=== PATIENT | female | born 1945 | race African-American/Black ===

== ENCOUNTER 2017-06-02 09:10 | Outpatient (CLI) | payer MEDICARE ==
--- NOTE | 2017-06-02 13:11 | MRI ---
LUMBAR SPINE MRI NONCONTRAST: Date: 06/02/17 CLINICAL HISTORY: Intervertebral disc disorder with radiculopathy. Reference made to 04/12/11 exam. FINDINGS: There is stable heterogeneity of the regional marrow. Conus medullaris demonstrates termination at t he L1-2 level. No acute marrow edema. L5-S1: There is mild central canal stenosis with resultant disc osteophyte complex and minimal, Grade I, sp ondylolisthesis. There is mild bilateral neural foraminal stenosis. L4-5: Disc osteophyte complex is present without significant central canal stenosis. There is minimal narr owing of each neural foramina. L3-4: Mild effacement of the ventral thecal sac on the basis of disc osteophyte complex. No high grade for aminal stenosis. L2-3: No significant compromise of the central canal or neural foramina. L1-2: No significant compromise of the central canal or neural foramina. Incidental note of left renal cyst. There is also incidental note of T11-12 level disc osteophyte ef facing ventral thecal sac. IMPRESSION: Multilevel mild degenerative changes of the lumbar spine, without significant interval change from c omparison exam of 04/12/11. POS: [facility]
== END 2017-06-02 09:11 | disposition home or self-care (01) ==
LOC: MRI 09:10
PROVIDERS: ATTEND Nurse Practitioner Family
DX: M51.16 Intervertebral disc disorders with radiculopathy, lumbar region (principal); M47.26 Other spondylosis with radiculopathy, lumbar region
CPT/HCPCS: 72148

== ENCOUNTER 2017-07-27 08:00 | Outpatient (CLI) | payer MEDICARE | END 2017-07-27 08:01 | disposition home or self-care (01) | LOC: BICMAMMO 08:00 | PROVIDERS: ATTEND Family Medicine | DX: Z13.820 Encounter for screening for osteoporosis (principal); M85.88 Other specified disorders of bone density and structure, other site | CPT/HCPCS: 77080 ==

== ENCOUNTER 2017-10-27 07:59 | Outpatient (CLI) | payer MEDICARE | END 2017-10-27 08:00 | disposition home or self-care (01) | LOC: BICMAMMO 07:59 | PROVIDERS: ATTEND Obstetrics & Gynecology | DX: Z12.31 Encounter for screening mammogram for malignant neoplasm of breast (principal) | CPT/HCPCS: 77063; 77067 ==

== ENCOUNTER 2018-10-25 10:45 | Outpatient (CLI) | payer MEDICARE ==
[2018-10-25 11:33] LABS: Estimated GFR-MDRD - POC Greater than 90
--- NOTE | 2018-10-25 12:04 | CT ---
FContrast-enhanced images chest and abdomen. HISTORY: History of weight loss, cough, ulcerative colitis and upper abdominal pain. IV and oral contrast was given. Comparison made to a previous exam from 04/02/2015. The lung parenchyma is unremarkable with no evidence of masses or lesions. No evidence of mediastinal hilar or axillary lymphadenopathy seen. Some mitral annular calcifications seen. There is marked heterogeneity and enlargement of the thyroid lobes compatible with possible multinodu lar goiter. Correlate with thyroid sonography. No evidence of free intraperitoneal air seen. The liver is unremarkable except for small hypodense lesions seen along the posterior right hepatic l obe along the dome. This is smaller than on the previous comparison exam. Surgical clips seen in the gallbladder fossa. The spleen is unremarkable. The pancreas is unremarkable. Adrenal glands and right kidney are unremarkable. The left kidney is unremarkable except for a midpole left renal cortical cysts. This has a diameter o f approximately 15 mm. No dilated loops of small bowel seen. Some diffuse colonic mucosal thickening is present compatible with patient's history of ulcerative co litis. L5-S1 intervertebral disc changes of spondylosis seen. IMPRESSION: colonic thickening compatible with changes of colitis.
== END 2018-10-25 10:46 | disposition home or self-care (01) ==
LOC: BICCT 10:45
PROVIDERS: ATTEND Internal Medicine Gastroenterology
DX: K21.9 Gastro-esophageal reflux disease without esophagitis (principal); K51.90 Ulcerative colitis, unspecified, without complications; R63.4 Abnormal weight loss; K63.89 Other specified diseases of intestine; Z80.8 Family history of malignant neoplasm of other organs or systems
CPT/HCPCS: 71260; 74160; 82565

== ENCOUNTER 2018-10-30 07:58 | Outpatient (CLI) | payer MEDICARE ==
--- NOTE | 2018-11-01 18:23 | MMO ---
Bilateral MAMMO Bilat Screen [facility]JATA. CLINICAL HISTORY: Patient is 72 years old and is seen for screening. The patient has no family history of breast cancer. The patient has no personal history of cancer. VIEWS: The views performed were: bilateral craniocaudal with tomosynthesis and bilateral mediolateral oblique with tomosynthesis. FILMS COMPARED: The present examination has been compared to prior imaging studies performed at [facility] on 10/27/2017, and at [facility] on 01/10/2012, 01/30/2013, 01/30/2014 and 09/16/2016. MAMMOGRAM FINDINGS: There are scattered fibroglandular densities. There is a stable round mass seen in the left breast. There are no suspicious masses, calcifications or areas of architectural distortion. There are no suspicious masses, suspicious calcifications, or new areas of architectural distortion. IMPRESSION: THERE IS NO MAMMOGRAPHIC EVIDENCE OF MALIGNANCY. A ROUTINE FOLLOW-UP MAMMOGRAM IN 1 YEAR IS RECOMMENDED. THE RESULTS OF THIS EXAM WERE SENT TO THE PATIENT. ACR BI-RADS Category 2 - Benign finding MAMMOGRAPHY NOTE: 1. A negative mammogram report should not delay a biopsy if a dominant of clinically suspicious mass is present. 2. Approximately 10% to 15% of breast cancers are not detected by mammography. 3. Adenosis and dense breasts may obscure an underlying neoplasm.
== END 2018-10-30 07:59 | disposition home or self-care (01) ==
LOC: BICMAMMO 07:58
PROVIDERS: ATTEND Family Medicine
DX: Z12.31 Encounter for screening mammogram for malignant neoplasm of breast (principal)
CPT/HCPCS: 77063; 77067

== ENCOUNTER 2018-11-14 07:25 | Outpatient (CLI) | payer MEDICARE ==
--- NOTE | 2018-11-14 09:30 | ULT ---
THYROID ULTRASOUND: INDICATIONS: Multinodular goiter. COMPARISON: Prior ultrasound guided FNA dated 03/12/2016. Thyroid ultrasound dated 12/10/2016. Thyroid ultrasound dated 03/10/2017. Thyroid ultrasound dated 11/23/2017. FINDINGS: Again seen is a large, heterogeneous, multinodular goiter, with the right thyroid lobe measuring 6.3 x 3.4 x 3.7 cm. The left thyroid lobe measures 6.9 x 3 x 2.4 cm. The thyroid isthmus measures 0.83 cm. The enlarged nodules are largely stable. The largest within the right lower lobe of the thyroid glan d measures 3.5 x 3.5 x 2.5 cm. A solid nodule within the mid right thyroid lobe measure 2.4 x 1.2 x 2.1 cm. There is a 1.4 cm nodule noted within the superior pole. Additional smaller nodules are see n scattered throughout the right thyroid lobe. The largest nodule within the left aspect of the isthmus measures 1.6 cm, which is stable. The largest within the left thyroid lobe is seen within the inferior pole, measuring 3 cm. An additi onal larger nodule within the lower pole measures 1.9 cm. IMPRESSION: Stable multinodular goiter. POS: [facility]
== END 2018-11-14 07:26 | disposition home or self-care (01) ==
LOC: BICULT 07:25
PROVIDERS: ATTEND Otolaryngology Plastic Surgery within the Head & Neck
DX: E04.2 Nontoxic multinodular goiter (principal)
CPT/HCPCS: 76536

== ENCOUNTER 2018-11-29 07:16 | Inpatient (IN) | payer MEDICARE ==
[2018-11-29 08:25] LABS: Hemoglobin 13.5 g/dL (12.0-16.0)
[2018-11-29 08:43] LABS: Anion Gap 10 mmol/L (10-20); BUN (Urea Nitrogen) 12 mg/dL (9.8-20.1); Calc. Creatinine Clearance 93 mL/min (70-130); Calcium 10.1 mg/dL (7.8-10.44); Carbon Dioxide 32 mmol/L (23-31); Chloride 104 mmol/L (98-107); Estimated GFR-MDRD Greater than 90; Glucose 123 mg/dL (83-110); Sodium 142 mmol/L (136-145)
[2018-11-29] MEDS ORDERED: Lidocaine 1% w/Epinephrine 1:100K 20 ML VIAL ONE (09:05)
[2018-11-29] MEDS ORDERED: Midazolam HCl 2 mg/2 ml Vial ONE ×2 (09:13→13:51)
[2018-11-29] MEDS ORDERED: Fentanyl 100 MCG/2 ML VIAL ONE ×2 (09:13→13:58)
[2018-11-29] MEDS ORDERED: PROPOFOL 200 MG/20 ML VIAL ONE ×2 (09:51→09:52)
[2018-11-29] MEDS ORDERED: Dexamethasone 20 MG/5 ML VIAL ONE ×2 (09:51→09:52)
[2018-11-29] MEDS ORDERED: Esmolol 100 MG/10 ML VIAL ONE (09:51)
[2018-11-29] MEDS ORDERED: Ondansetron PF 4 MG/2 ML Vial ONE (09:51)
[2018-11-29] MEDS ORDERED: Lidocaine 1% PF 5 ML VIAL ONE (09:51)
[2018-11-29] MEDS ORDERED: Succinylcholine Chloride 20 MG/ML 10 ml SYRINGE FS ONE (09:51)
[2018-11-29] MEDS ORDERED: Rocuronium Bromide 10 MG/ML (10ML VIAL) ONE (09:52)
[2018-11-29] MEDS ORDERED: CEFAZOLIN 1 GM VIAL ONE (09:52)
[2018-11-29] MEDS ORDERED: Glycopyrrolate 0.2 MG/ML 5 ML SYRINGE ONE (09:52)
[2018-11-29] MEDS ORDERED: Labetalol HCl 100 MG/20 ML VIAL ONE (09:55)
[2018-11-29] MEDS ORDERED: Bacitracin Zinc Ointment 30 gm TUBE ONE (10:58)
[2018-11-29] MEDS ORDERED: Bacitracin Zinc 1 Packet TOP PRN (11:59)
[2018-11-29] MEDS ORDERED: HYDROcodone/Acetaminophen 5/325 mg Tablet PO PRN ×2 (12:01)
[2018-11-29] MEDS ORDERED: Ondansetron ODT 4 MG TAB PO PRN (12:02)
[2018-11-29] MEDS ORDERED: Ondansetron PF 4 MG/2 ML Vial SLOW IVP PRN (12:03)
[2018-11-29] MEDS ORDERED: Calcium Gluconate 9.2 MEQ in Sodium Chloride 0.9% 100 ML IVPB PRN (12:04)
[2018-11-29] MEDS ORDERED: Sodium Chloride 0.45% 1,000 ML IV SCH (12:15)
[2018-11-29] MEDS ORDERED: Sodium Chloride For Inhalation 0.9% 3 ML NEB ONE (13:41)
[2018-11-29] MEDS ORDERED: PROPOFOL 20 ML ONE (13:47)
[2018-11-29] MEDS ORDERED: Rocuronium Bromide 50 MG/5 ML VIAL ONE (13:52)
[2018-11-29] MEDS ORDERED: Oxymetazoline HCl 0.05% ( 15 ML ) ONE (14:24)
[2018-11-29] MEDS ORDERED: Albuterol Sulfate HFA (OR ONLY) ONE (14:34)
[2018-11-29] MEDS ORDERED: Propofol 500 MG/50 ML VIAL ONE (14:49)
[2018-11-29] MEDS ORDERED: Propofol 1,000 MG/100 ML VIAL IV ONE (14:58)
[2018-11-29] MEDS ORDERED: CCU Electrolyte Replacement 1 EACH FS ONE (15:30)
[2018-11-29] MEDS ORDERED: Ventilator Sedation Protocol 1 EACH FS SCH (15:30)
[2018-11-29] MEDS ORDERED: Magnesium 2 GM/50 ML 2 GM in Premix Bag 1 BAG IVPB PRN (15:43)
[2018-11-29] MEDS ORDERED: Potassium Chloride 40 MEQ in Premix Bag 1 BAG IVPB PRN (15:43)
[2018-11-29] MEDS ORDERED: Potassium Phosphate 15 MMOL in Sodium Chloride 0.9% 250 ML 250 ML IV PRN (15:43)
[2018-11-29] MEDS ORDERED: PHOS-NAK 1 PKT PACK PO PRN ×2 (15:43)
[2018-11-29] MEDS ORDERED: Potassium Phosphate 12 MMOL in Sodium Chloride 0.9% 250 ML 250 ML IV PRN (15:43)
[2018-11-29] MEDS ORDERED: Potassium Phosphate 9 MMOL in Sodium Chloride 0.9% 100 ML IVPB PRN (15:43)
[2018-11-29] MEDS ORDERED: Magnesium Oxide 400 MG TAB PO PRN ×2 (15:43)
[2018-11-29] MEDS ORDERED: Potassium Chloride 40 MEQ in Sodium Chloride 0.9% 250 ML 250 ML IVPB PRN (15:43)
[2018-11-29] MEDS ORDERED: Potassium Chloride 20 MEQ TAB PO PRN (15:43)
[2018-11-29] MEDS ORDERED: CCU ELECTROLYTE REPLACEMENT PROTOCOL FS PRN (15:43)
[2018-11-29] MEDS ORDERED: fentaNYL Citrate/PF 2,000 MCG in Sodium Chloride 0.9% 60 ML IV SCH (15:44)
[2018-11-29] MEDS ORDERED: Fentanyl BOLUS 250 ML IVPB PRN (15:44)
[2018-11-29] MEDS ORDERED: DISCONTINUE PREVIOUS NARCOTIC PAIN MEDICATIONS AND BENZODIAZEPINES FS SCH (15:44)
[2018-11-29] MEDS ORDERED: Propofol BOLUS 1,000 MG/100 ML VIAL IV PRN (15:44)
[2018-11-29 16:10] LABS: Base Excess (BEa) -4.3 mEq/L (-2.0 to +3.0); Calcium, Ionized 1.11 mmol/L (1.12-1.30); Carboxyhemoglobin (COHb) 1.3 gm% (0.0-3.0); Hemoglobin (Hb) 11.9 g/dL (12.0-16.0); O2 Tension (PaO2) 87.6 mmHg (> 70.0); Potassium - ABG Lab 3.32 mmol/L (3.70-5.30); pH, Arterial 7.31 (7.35-7.45)
--- NOTE | 2018-11-29 16:13 | RAD ---
EXAM: Chest one view: HISTORY: Aspiration pneumonia COMPARISON: Chest CT scan, 10/25/2018 FINDINGS: Endotracheal tube in satisfactory location. Tubes and drains overlie the lower neck. Heart size: Within normal limits. The lungs: Clear of acute process. No evidence for pneumonia, pleural effusion, acute edema, or pneumothorax, or other significant acute process. IMPRESSION: No significant acute intrathoracic disease. Endotracheal tube in satisfactory location.
[2018-11-29 16:20] LABS: Puncture Site RRA
[2018-11-29] MEDS ORDERED: Promethazine HCl 25 MG/ML VIAL SLOW IVP PRN (16:22)
[2018-11-29] MEDS ORDERED: Ondansetron HCl/PF 4 MG/2 ML Vial IVP PRN (16:22)
[2018-11-29] MEDS ORDERED: Promethazine HCl 25 MG/ML VIAL IM PRN (16:22)
[2018-11-29 16:39] LABS: Anion Gap 14 mmol/L (10-20); BUN (Urea Nitrogen) 11 mg/dL (9.8-20.1); Calc. Creatinine Clearance 81 mL/min (70-130); Calcium 8.6 mg/dL (7.8-10.44); Carbon Dioxide 25 mmol/L (23-31); Chloride 103 mmol/L (98-107); Estimated GFR-MDRD 89; Glucose 271 mg/dL (83-110); Potassium 3.4 mmol/L (3.5-5.1); Sodium 139 mmol/L (136-145)
[2018-11-29 16:50] LABS: Band 10 % (5-11); Hemoglobin 11.6 g/dL (12.0-16.0); Lymphocytes 2 % (21-51); MDiff Complete? YES; Mean Corpuscular HGB CONC 32.2 g/dL (32.0-36.0); Mean Corpuscular Hemoglobin 30.2 pg (27.0-31.0); Mean Corpuscular Volume 93.8 fL (78.0-98.0); Mean Platelet Volume 7.7 fL (7.4-10.4); Monocytes 1 % (0-10); Neutrophil 87 % (42-75); Platelet Count 205 thou/uL (130-400); Platelet Morphology Comment Appears Adequate; RBC Distribution Width 12.8 % (11.5-14.5); Red Blood Cell (RBC) Count 3.84 mill/uL (4.20-5.40); White Blood Cell (WBC) Count 33.8 thou/uL (4.8-10.8)
[2018-11-29] MEDS: ceFAZolin 1 GM/D5W 1 GM in Premix Bag 1 BAG IVPB SCH ×2 (17:01→21:03)
[2018-11-29] MEDS: Calcium Carbonate 500 MG TAB PO SCH (17:03)
[2018-11-29] MEDS: Sodium Chloride 0.9% 1,000 ML IV SCH (17:05)
[2018-11-29] MEDS: Propofol 1,000 MG/100 ML VIAL IV PRN ×2 (20:34→22:55)
--- NOTE | 2018-11-29 21:31 | OP ---
DATE OF PROCEDURE: 11/29/2018 PREOPERATIVE DIAGNOSES: 1. Thyroid mass. 2. Hyperthyroidism. POSTOPERATIVE DIAGNOSES: 1. Thyroid goiter. 2. Right thyroid mass/nodule. 3. Hyperthyroidism. ESTIMATED BLOOD LOSS: 50 mL. COMPLICATIONS: None. ANESTHESIA: GETA. PROCEDURE PERFORMED: Total thyroidectomy with laryngeal nerve monitor. DESCRIPTION OF PROCEDURE: The patient was taken to the operating room and placed supine on table. General endotracheal anesthesia was obtained by the anesthesia staff. Tube was secured in the midline of the upper lip. Shoulder roll was placed. The laryngeal electrodes were confirmed to be between the vocal cords by direct laryngoscopy. Following this, the patient was prepped and draped in standard surgical fashion. Following this, an incision was made approximately 2 cm above the clavicle through skin, subcutaneous tissue, and the platysmal layer. This dissection was carried down to the level of the strap muscles. Subplatysmal dissection was carried superiorly to the thyroid notch and inferiorly to the level of the clavicles. Following this, the strap muscles were in the midline. Dissection was carried medially adjacent to the thyroid capsule. On the right side, the thyroid was markedly enlarged and caused some deviation of the laryngeal structures away from midline. Dissection was carried first at the superior pole of the right thyroid gland, where the superior vascular pedicle adjacent to the thyroid gland. Following that, the gland was retracted further medially. The inferior thyroid artery was suture ligated and the right recurrent laryngeal nerve was identified, that was noted to be coursing approximately 30 degrees from the tracheoesophageal groove. As this nerve was dissected to the cricothyroid joint, the gland was freed from its attachments to the area of the larynx. Following this, the attachments to the trachea, Nicole ligaments were then suture ligated and transected using the Bovie electrocautery. Following this, the left side was identified. Dissection was carried medially adjacent to the thyroid capsule. The middle thyroid vein was suture ligated. The superior thyroid vascular pedicle was suture ligated immediately adjacent to the capsule. The parathyroid glands were identified bilaterally and were protected throughout the procedure. Following this, the left recurrent laryngeal nerve was identified and was noted to be coursing approximately 15 degrees from the tracheoesophageal groove, protecting the nerve cricothyroid notch. Left thyroid lobe was freed from this area. Following this, inferior thyroid artery on this left side was suture ligated. Following this, the thyroid attachments to the trachea on this side were then suture ligated or transected with the Bovie electrocautery. Following this, wound was irrigated. . A small amount of Fibrillar was placed over the cricothyroid joint bilaterally and a drain was placed bilaterally. The wound was then closed with the Monocryl stitches on the strap muscles, platysma layer, and subcuticular layer. Following that, the skin was closed using Dermabond. The patient tolerated the procedure well. The patient was extubated and taken to recovery room in stable condition. Job ID: [id number]
--- NOTE | 2018-11-29 21:36 | CON ---
DATE OF CONSULTATION: 11/29/2018 CONSULTING PHYSICIAN: Jostin Roberto MD. REASON FOR CONSULTATION: Mandatory - CCU. The following encompassed 70 minutes critical care time spent with the patient. HISTORY OF PRESENT ILLNESS: This is a 72-year-old female, who underwent a total thyroidectomy earlier today. She experienced excessive bleeding and airway compromise while in the postanesthesia care unit. She was briefly arrested. The nursing staff think she received 3 to 4 minutes chest compression. Her neck was reopened, clot was removed. She was taken back to the OR for bleeding control. She was intubated during the code and left intubated after the procedure with instructions to keep her intubated overnight. PAST MEDICAL HISTORY: 1. Reactive airway disease. 2. Hypertension. 3. Hypothyroidism. 4. Chronic cough. 5. Gastroesophageal reflux. 6. Peripheral neuropathy. 7. Hyperlipidemia. PAST SURGICAL HISTORY: [place] fundoplication, laparoscopic cholecystectomy, bilateral cataract surgery, bunion repairs, total hysterectomy, bilateral tubal ligation with reversal. FAMILY MEDICAL HISTORY: Father of pancreatic cancer. Mother with scleroderma. SOCIAL HISTORY: Former respiratory therapist, now retired. Quit smoking in 2012 after smoking 1/2 pack per day. Does not consume alcohol. Does not use illicit drugs. ALLERGIES: SIMVASTATIN AND PRAVASTATIN CAUSE MYALGIAS. CURRENT MEDICATIONS: 1. Amlodipine 5 mg daily. 2. Aspirin 81 mg daily. 3. Atorvastatin 10 mg daily. 4. Colestipol two 1 g tablets daily. 5. Estradiol 1 tablet daily. 6. TriCor 48 mg nightly. 7. Hydrochlorothiazide 12.5 mg nightly. 8. Levothyroxine 25 mcg daily. 9. Meloxicam 15 mg daily. 10. Mesalamine 1.2 g twice daily. 11. Montelukast 10 mg daily. 12. Dalzell-3 fatty acid 1000 mg daily. 13. Pantoprazole 40 mg daily. 14. vitamin 1 daily. 15. Potassium chloride 20 mEq daily. 16. Lyrica 50 mg 3 times daily. REVIEW OF SYSTEMS: Cannot be obtained as she is currently on mechanical ventilation. PHYSICAL EXAMINATION: VITAL SIGNS: Heart rate 96, blood pressure 154/80, O2 saturation 100%, respiratory rate 12. She is intubated and on mechanical ventilation. She will wake up when stimulated, but does not follow commands specifically. HEENT: Pupils are 3 mm and reactive. Sclerae anicteric. Oropharynx, ET tube in place with some blood in the ET tube. NECK: Large thyroidectomy scar. She has two drains coming from the thyroid region, both are full of blood. LUNGS: Clear to auscultation bilaterally. CARDIOVASCULAR: S1 and S2, slightly tachycardic without audible murmur. ABDOMEN: Soft, nontender. Multiple old surgical scars are noted. All healed very well. EXTREMITIES: No clubbing, cyanosis, or edema. Moves all 4 extremities without difficulty. LABORATORY DATA: Hemoglobin 13.5, hematocrit 42 - preop. Sodium 142, potassium 4, chloride 104, CO2 of 32, BUN 12, creatinine 0.7, glucose 123, calcium 9.1. Chest x-ray has not been performed yet. ASSESSMENT: 1. Post thyroidectomy with excessive bleeding resulting in airway compromise, cardiopulmonary arrest, successful resuscitation, and return to OR. 2. Acute respiratory failure requiring mechanical ventilation. 3. Chronic medical problems as listed above. PLAN: The patient will be placed in the CCU overnight. She will be kept sedated with propofol. She may require intermittent paralysis. She also may require blood pressure control with nicardipine. She will be given GI prophylaxis with Protonix, DVT prophylaxis with PlexiPulse since anticoagulation is contraindicated at this time. Her chest x-ray and labs need to be checked. Job ID: [id number]
[2018-11-29] MEDS: Lorazepam 2 MG/ML VIAL SLOW IVP PRN (22:11)
[2018-11-29] MEDS: Morphine 2 MG/ML SYRINGE SLOW IVP PRN (22:32)
[2018-11-30] MEDS: Morphine 2 MG/ML SYRINGE SLOW IVP PRN (00:37)
[2018-11-30] MEDS: Lorazepam 2 MG/ML VIAL SLOW IVP PRN (01:22)
[2018-11-30] MEDS: Propofol 1,000 MG/100 ML VIAL IV PRN ×3 (01:53→08:14)
[2018-11-30] MEDS: ceFAZolin 1 GM/D5W 1 GM in Premix Bag 1 BAG IVPB SCH ×3 (05:13→21:34)
[2018-11-30] MEDS: niCARdipine HCl 25 MG in Sodium Chloride 0.9% 250 ML 240 ML IVPB SCH ×2 (06:01→09:43)
[2018-11-30] MEDS: Sodium Chloride 0.9% 1,000 ML IV SCH ×2 (06:23→21:35)
[2018-11-30 06:31] LABS: Anion Gap 20 mmol/L (10-20); BUN (Urea Nitrogen) 14 mg/dL (9.8-20.1); Calc. Creatinine Clearance 73 mL/min (70-130); Calcium 8.1 mg/dL (7.8-10.44); Carbon Dioxide 19 mmol/L (23-31); Chloride 103 mmol/L (98-107); Estimated GFR-MDRD 79; Glucose 181 mg/dL (83-110); Potassium 4.2 mmol/L (3.5-5.1); Sodium 138 mmol/L (136-145)
[2018-11-30 06:33] LABS: Base Excess (BEa) 0.5 mEq/L (-2.0 to +3.0); CO2 Tension 39.9 mmHg (35.0-45.0); Calcium, Ionized 1.01 mmol/L (1.12-1.30); Carboxyhemoglobin (COHb) 0.1 gm% (0.0-3.0); Hemoglobin (Hb) 11.8 g/dL (12.0-16.0); Potassium - ABG Lab 3.65 mmol/L (3.70-5.30); pH, Arterial 7.42 (7.35-7.45)
[2018-11-30 06:34] LABS: ALV-art Gradient 67.025 (0-20); Puncture Site RRA
[2018-11-30 07:40] LABS: Hemoglobin 11.7 g/dL (12.0-16.0); Mean Corpuscular HGB CONC 33.3 g/dL (32.0-36.0); Mean Corpuscular Hemoglobin 30.2 pg (27.0-31.0); Mean Corpuscular Volume 90.6 fL (78.0-98.0); Mean Platelet Volume 7.7 fL (7.4-10.4); Platelet Count 192 thou/uL (130-400); RBC Distribution Width 12.8 % (11.5-14.5); Red Blood Cell (RBC) Count 3.89 mill/uL (4.20-5.40); White Blood Cell (WBC) Count 23.1 thou/uL (4.8-10.8)
--- NOTE | 2018-11-30 07:41 | RAD ---
PORTABLE CHEST: HISTORY: Respiratory distress. COMPARISON: 11/29/2018 study FINDINGS: Heart size is enlarged. Endotracheal tube is in satisfactory position. The lungs are clear of infil trates. IMPRESSION: Stable exam. POS: [facility]
[2018-11-30 08:08] LABS: #Lymphocytes 1.9 thou/uL (1.20-3.40); #Monocytes 2.4 thou/uL (0.11-0.59); #Neutrophils 18.8 thou/uL (1.40-6.50); %Basophils 0.2 % (0.0-1.0); %Eosinophils 0.1 % (0.0-10.0); %Lymphocytes 8.1 % (21.0-51.0); %Monocytes 10.2 % (0.0-10.0); %Neutrophils 81.3 % (42.0-75.0); Band 1 % (5-11); Lymphocytes 7 % (21-51); MDiff Complete? YES; Monocytes 2 % (0-10); Neutrophil 90 % (42-75); RBC Morphology Normal
--- NOTE | 2018-11-30 08:13 | PRG ---
DATE OF SERVICE: 11/30/2018 SUBJECTIVE: The patient did well overnight, sedated on the ventilator. There were no acute events. OBJECTIVE: VITAL SIGNS: Remain stable. Afebrile. CANDICE drain output has been minimal. LUNGS: Mild crackles bilaterally. The endotracheal tube was deflated. The patient has a very adequate air leak around the endotracheal tube. NECK: No swelling, masses. No evidence of hematoma. Drains intact. Procedure: Flexible laryngoscopy was performed via the nasal cavity. Nasal cavity was sprayed with topical anesthesia and decongestant, and then the flexible laryngoscope was advanced to the nasal cavity and nasopharynx was clear. The visualized portions of the larynx showed no significant edema and there was an adequate air leak with the endotracheal cuff down. ASSESSMENT: On postop day #1, total thyroidectomy. The patient had postoperative hematoma requiring emergent reexploration and control of hemorrhage. She has remained on the ventilator overnight. I feel she is safe for extubation from an airway standpoint today. Immediately following extubation, we will perform flexible laryngoscopy to ensure that her vocal cords are moving appropriately and further medical care and observation per the ICU Team. Job ID: [id number]
[2018-11-30] MEDS: Pantoprazole 40 MG VIAL IVP SCH (08:15)
[2018-11-30] MEDS: Calcitriol 0.25 MCG CAP PO SCH (08:15)
[2018-11-30] MEDS: Calcium Carbonate 500 MG TAB PO SCH ×3 (08:15→17:00)
[2018-11-30] MEDS: niCARdipine HCl 50 MG in Sodium Chloride 0.9% 250 ML 230 ML IVPB SCH (13:00)
--- NOTE | 2018-11-30 14:13 | OP ---
DATE OF PROCEDURE: 11/29/2018 PREOPERATIVE DIAGNOSES: 1. Postoperative thyroid hematoma. 2. Acute airway obstruction. POSTOPERATIVE DIAGNOSES: 1. Postoperative thyroid hematoma. 2. Acute airway obstruction. PROCEDURES PERFORMED: 1. Evacuation of neck hematoma and control of postoperative hemorrhage. 2. Flexible laryngoscopy. ESTIMATED BLOOD LOSS: 100 mL. COMPLICATIONS: None. ANESTHESIA: GETA. BRIEF HISTORY: This is a female, who underwent total thyroidectomy earlier this morning. She was having a normal postoperative recovery room course until she noticed some tightness in her throat and stridorous breathing was identified. Her saturations remain in the upper 90s. Anesthesia was consulted and at bedside, the patient then underwent a rapid loss of upper airway and also neck swelling associated with it. The wound was opened up at the bedside in the PACU and hematoma was evacuated. This allowed for adequate visualization and intubation. The patient was intubated and taken to the operating room for immediate re-exploration. DESCRIPTION TO PROCEDURE: Upon entering to the operating room, the wound was further opened and large clots were removed from the operative site area of the thyroid bed. On the left inferior thyroid artery, there was a pulsatile arterial bleed, which was controlled with suture ligation. Following this, remainder of the wound was irrigated. Any oozing spots were suture ligated or controlled with Bovie electrocautery. The patient's wound was closed, closing the strap muscles, platysmal layer and subcuticular layer with Monocryl stitches, and skin using Dermabond. The patient will remain intubated and taken to the ICU for continued observation and care. Flexible laryngoscopy was attempted at the end of the procedure, however, the secretions made it difficult to assess the vocal cord mobility and it made it difficult to assess any laryngeal edema that may further compromise extubation. The patient tolerated the procedure well. Job ID: [id number]
[2018-11-30] MEDS: Morphine 4 MG/ML VIAL SLOW IVP PRN (15:47)
--- NOTE | 2018-11-30 16:31 | PRG ---
DATE OF SERVICE: 11/30/2018 SUBJECTIVE: Karen Alex had her sedation held this morning. She awakened gradually once it was held. She was given spontaneous breathing trial. She passed a leak test. She subsequently has been extubated. She does have a mild resting tachycardia. This is improved with administration of morphine for pain. OBJECTIVE: VITAL SIGNS: Blood pressure currently is 114/50, heart rate 111, respiratory rate 16, oximetry is 97%. LUNGS: Clear. HEART: Regular rhythm. S1 and S2 are normal. ABDOMEN: Soft and nontender. EXTREMITIES: Without clubbing, cyanosis, or edema. LABORATORY DATA: White count 23.1, hemoglobin 11.7, and platelets 192. Sodium 138, potassium 4.2, chloride 103, bicarb 19, BUN 14, creatinine 0.86. IMPRESSION: Status post massive back hemorrhage after thyroidectomy leading to occlusion of her airway and then had a code yesterday afternoon. She subsequently extubated and has no stridor or distress. We will continue to follow. CRITICAL CARE TIME: 30 minutes. Job ID: [id number] MTDD
[2018-12-01 04:57] LABS: #Basophils 0.1 thou/uL (0.0-0.2); #Eosinphils 0.1 thou/uL (0.0-0.7); #Monocytes 1.7 thou/uL (0.11-0.59); #Neutrophils 14.1 thou/uL (1.40-6.50); %Basophils 0.4 % (0.0-1.0); %Eosinophils 0.3 % (0.0-10.0); %Lymphocytes 15.7 % (21.0-51.0); %Monocytes 9.1 % (0.0-10.0); %Neutrophils 74.5 % (42.0-75.0); Mean Corpuscular HGB CONC 33.8 g/dL (32.0-36.0); Mean Corpuscular Hemoglobin 30.7 pg (27.0-31.0); Mean Corpuscular Volume 90.7 fL (78.0-98.0); Platelet Count 192 thou/uL (130-400); RBC Distribution Width 12.9 % (11.5-14.5); Red Blood Cell (RBC) Count 3.25 mill/uL (4.20-5.40); White Blood Cell (WBC) Count 18.9 thou/uL (4.8-10.8)
[2018-12-01] MEDS: niCARdipine HCl 50 MG in Sodium Chloride 0.9% 250 ML 230 ML IVPB SCH (05:02)
[2018-12-01] MEDS: ceFAZolin 1 GM/D5W 1 GM in Premix Bag 1 BAG IVPB SCH ×3 (05:15→22:32)
[2018-12-01 05:23] LABS: Anion Gap 11 mmol/L (10-20); BUN (Urea Nitrogen) 6 mg/dL (9.8-20.1); Calc. Creatinine Clearance 107 mL/min (70-130); Calcium 6.6 mg/dL (7.8-10.44); Carbon Dioxide 31 mmol/L (23-31); Chloride 105 mmol/L (98-107); Estimated GFR-MDRD Greater than 90; Glucose 163 mg/dL (83-110); Sodium 144 mmol/L (136-145)
--- NOTE | 2018-12-01 08:01 | RAD ---
CHEST ONE VIEW: HISTORY: Follow up pneumonia. COMPARISON: 11/30/2018 FINDINGS: Minimal soft tissue swelling in the supraclavicular and lower neck region. Postoperative changes. R emoval of the endotracheal tube. Heart size is within normal limits. IMPRESSION: 1. No significant acute intrathoracic disease. 2. Atherosclerosis of the aorta. 3. Postoperative changes in the region of the lower neck. 4. Stable mild biapical pleural thickening. Continue short-term followup. POS: [facility]
[2018-12-01] MEDS: Pantoprazole 40 MG VIAL IVP SCH (08:34)
[2018-12-01] MEDS: Calcium Carbonate 500 MG TAB PO SCH ×3 (08:38→18:30)
[2018-12-01] MEDS: Calcitriol 0.25 MCG CAP PO SCH (08:38)
[2018-12-01] MEDS ORDERED: Calcium Gluconate 9.2 MEQ in Sodium Chloride 0.9% 100 ML IVPB PRN (09:20)
[2018-12-01] MEDS ORDERED: CALCIUM GLUCONATE IVPB PRN (09:24)
[2018-12-01] MEDS ORDERED: MAGNESIUM SULFATE IVPB PRN (09:24)
[2018-12-01] MEDS ORDERED: SODIUM CHLORIDE 0.9% IVPB PRN (09:24)
[2018-12-01] MEDS ORDERED: Levothyroxine Sodium 100 MCG TAB PO SCH (09:30)
[2018-12-01 10:20] VITALS: BMI 25.4
[2018-12-01] MEDS: Amlodipine 10 MG TAB PO SCH (10:33)
[2018-12-01] MEDS: Sodium Chloride 0.9% 1,000 ML IV SCH (10:39)
--- NOTE | 2018-12-01 13:09 | PRG ---
DATE OF SERVICE: 12/01/2018 SUBJECTIVE: Karen Alex is awake and alert. She is hoarse, but has vocal cord function per my discussion with [facility] PA. OBJECTIVE: VITAL SIGNS: She is afebrile. Heart rate is in the 80s, blood pressure 136/70, respiratory rate is 24. She is still on the Cardene drip. LUNGS: Clear. HEART: Regular rhythm. ABDOMEN: Soft. EXTREMITIES: No asymmetry. IMAGING STUDIES: Chest x-ray shows clear lung de jesus. IMPRESSION AND PLAN: 1. Status post cardiorespiratory arrest associated with massive hemorrhage into her neck after a thyroidectomy with no anoxic sequela. 2. Acute respiratory failure associated with the hemorrhage leading to intubation and ventilation until the next day. 3. Status post thyroidectomy. Her calcium has fallen to 6.6, which could be associated with a decrease in protein after massive blood loss. It will be easier to follow an ionized calcium using a blood gas machine since we do not have a way of doing quick ionized calciums in the hospital. We will plan to wean her off Cardene today. We will start Norvasc this morning. We will continue to monitor her in the critical care unit for now. Job ID: [id number]
[2018-12-01 13:10] LABS: Actual Bicarbonate (HCO3v) 26 mEq/L (22-28); Base Excess 2.4 mEq/L (-2.0 to +3.0); Hemoglobin (Hb) 10.8 g/dL (11.7-16.1); pH (venous) 7.46 (7.32-7.43)
[2018-12-01 13:11] LABS: Calcium, Ionized 0.83 mmol/L (1.16-1.32); Chloride (ABG LAB) 105 mmol/L (98-106); Potassium - ABG Lab 3.22 mmol/L (3.70-5.30); Sodium 145.2 mmol/L (133-146)
[2018-12-01] MEDS ORDERED: MAGNESIUM SULFATE IVPB SCH (13:30)
[2018-12-01] MEDS ORDERED: SODIUM CHLORIDE 0.9% IVPB SCH (13:30)
[2018-12-01] MEDS ORDERED: CALCIUM GLUCONATE IVPB SCH (13:30)
--- NOTE | 2018-12-01 14:52 | PRG ---
DATE OF SERVICE: 12/01/2018 SUBJECTIVE: The patient is overall doing well, following total thyroidectomy. She is recovering from having a code. She was extubated yesterday of a breathing tube. Dr. Roberto was able to come by and assess her vocal cord function and everything was normal. This morning, she is sitting up, she is alert. She is eating. She claimed that she has a mildly fatty throat, but overall is feeling better. OBJECTIVE: The patient is well developed, well nourished. She is in no acute distress. Again, she is eating and sitting up comfortably, though still just eating soft foods only. She has been unable to take her Rocaltrol to this point and calcium was 6.6 this morning. IV calcium was started upon finding the low calcium. Surgical site is healing well. Drains are still in place; drain A put out 30 mL through the night, drain B put out 11 mL through the night. She has not been up to move around yet today. ASSESSMENT: 1. Postop total thyroidectomy. 2. Hypocalcemia. PLAN: 1. Monitor calcium q.6 h. 2. Calcium less than 7.8. Recommend 2 g calcium gluconate with 1 g magnesium sulfate via IV piggyback. PT to assess to help her get up and begin ambulating. 3. Catheter to be removed once able to get up and get moving by herself into the bathroom safely. Also, will start 100 mcg of [address]roid. 4. Dr. Roberto to follow up this afternoon and assess further. Job ID: [id number]
[2018-12-01 19:14] LABS: Actual Bicarbonate (HCO3v) 28 mEq/L (22-28); Calcium, Ionized 1.11 mmol/L (1.16-1.32); Chloride (ABG LAB) 104 mmol/L (98-106); Hemoglobin (Hb) 11.2 g/dL (11.7-16.1); Potassium - ABG Lab 3.39 mmol/L (3.70-5.30); Sodium 144.5 mmol/L (133-146); pH (venous) 7.45 (7.32-7.43)
[2018-12-01] MEDS: Acetaminophen 325 MG TAB PER TUBE PRN (20:45)
[2018-12-01] MEDS: Morphine 4 MG/ML VIAL SLOW IVP PRN ×2 (22:39)
[2018-12-02] MEDS: Sodium Chloride 0.9% 1,000 ML IV SCH ×2 (00:42→14:25)
[2018-12-02 01:49] LABS: #Eosinphils 0.2 thou/uL (0.0-0.7); #Lymphocytes 3.6 thou/uL (1.20-3.40); #Monocytes 1.9 thou/uL (0.11-0.59); #Neutrophils 12.8 thou/uL (1.40-6.50); %Basophils 0.2 % (0.0-1.0); %Eosinophils 1.2 % (0.0-10.0); %Lymphocytes 19.3 % (21.0-51.0); %Neutrophils 69.3 % (42.0-75.0); Hemoglobin 10.1 g/dL (12.0-16.0); Mean Corpuscular Hemoglobin 31.2 pg (27.0-31.0); Mean Corpuscular Volume 91.6 fL (78.0-98.0); Mean Platelet Volume 7.5 fL (7.4-10.4); Platelet Count 191 thou/uL (130-400); RBC Distribution Width 12.8 % (11.5-14.5); Red Blood Cell (RBC) Count 3.23 mill/uL (4.20-5.40); White Blood Cell (WBC) Count 18.5 thou/uL (4.8-10.8)
[2018-12-02 02:14] LABS: Anion Gap 15 mmol/L (10-20); BUN (Urea Nitrogen) 4 mg/dL (9.8-20.1); Calc. Creatinine Clearance 100 mL/min (70-130); Carbon Dioxide 28 mmol/L (23-31); Chloride 104 mmol/L (98-107); Estimated GFR-MDRD Greater than 90; Glucose 174 mg/dL (83-110); Potassium 3.1 mmol/L (3.5-5.1); Sodium 144 mmol/L (136-145)
[2018-12-02] MEDS: ceFAZolin 1 GM/D5W 1 GM in Premix Bag 1 BAG IVPB SCH ×3 (06:13→21:33)
[2018-12-02] MEDS: Levothyroxine Sodium 100 MCG TAB PO SCH (06:13)
[2018-12-02] MEDS: Calcium Carbonate 500 MG TAB PO SCH ×3 (08:27→16:30)
[2018-12-02] MEDS: Amlodipine 10 MG TAB PO SCH (08:28)
[2018-12-02] MEDS: Calcitriol 0.25 MCG CAP PO SCH (08:32)
[2018-12-02] MEDS: Pantoprazole 40 MG VIAL IVP SCH (08:34)
--- NOTE | 2018-12-02 08:40 | RAD ---
EXAM: Portable chest PROVIDED CLINICAL HISTORY: Pneumonia COMPARISON: 12/01/2018 FINDINGS: Significant interval change with respect to the prior examination is not apparent. IMPRESSION: As above.
--- NOTE | 2018-12-02 08:59 | PRG ---
DATE OF SERVICE: 12/02/2018 SUBJECTIVE: Karen Alex is a 72-year-old female in the ICU. She is doing much better this morning. She is less short of breath. Chest x-ray is clear. She has a drain, where she had the thyroid surgery done. OBJECTIVE: VITAL SIGNS: Saturations are 95% on room air, pulse 80, blood pressure 120/80, respiratory rate 18. CHEST: No wheezing or crackles. CARDIAC: Normal S1 and S2. No gallops. ABDOMEN: No masses. IMPRESSION: Status post cardiopulmonary arrest secondary to massive hemorrhage from her neck following a thyroidectomy; respiratory failure, resolved, status post extubation. PLAN: Continue with PT. Supportive care. Correct electrolytes. Pulmonary/Critical Care will follow while in the ICU. She is still on empirical antibiotics, which I will continue. Job ID: [id number]
[2018-12-02] MEDS: Morphine 4 MG/ML VIAL SLOW IVP PRN ×3 (10:29→23:29)
[2018-12-03] MEDS: Levothyroxine Sodium 100 MCG TAB PO SCH (05:17)
[2018-12-03] MEDS: ceFAZolin 1 GM/D5W 1 GM in Premix Bag 1 BAG IVPB SCH ×3 (05:18→21:17)
[2018-12-03] MEDS: Sodium Chloride 0.9% 1,000 ML IV SCH ×2 (05:18→17:25)
[2018-12-03 05:54] LABS: #Eosinphils 0.2 thou/uL (0.0-0.7); #Lymphocytes 2.3 thou/uL (1.20-3.40); #Monocytes 1.3 thou/uL (0.11-0.59); #Neutrophils 10.1 thou/uL (1.40-6.50); %Basophils 0.1 % (0.0-1.0); %Eosinophils 1.5 % (0.0-10.0); %Lymphocytes 16.4 % (21.0-51.0); %Monocytes 9.5 % (0.0-10.0); %Neutrophils 72.5 % (42.0-75.0); Mean Corpuscular HGB CONC 34.8 g/dL (32.0-36.0); Mean Corpuscular Hemoglobin 31.8 pg (27.0-31.0); Mean Corpuscular Volume 91.3 fL (78.0-98.0); Platelet Count 200 thou/uL (130-400); RBC Distribution Width 12.6 % (11.5-14.5); Red Blood Cell (RBC) Count 3.13 mill/uL (4.20-5.40); White Blood Cell (WBC) Count 13.9 thou/uL (4.8-10.8)
[2018-12-03 06:14] LABS: Anion Gap 9 mmol/L (10-20); BUN (Urea Nitrogen) 6 mg/dL (9.8-20.1); Calc. Creatinine Clearance 84 mL/min (70-130); Calcium 9.2 mg/dL (7.8-10.44); Carbon Dioxide 32 mmol/L (23-31); Chloride 100 mmol/L (98-107); Estimated GFR-MDRD Greater than 90; Glucose 182 mg/dL (83-110); Potassium 3.3 mmol/L (3.5-5.1); Sodium 138 mmol/L (136-145)
[2018-12-03] MEDS: Amlodipine 10 MG TAB PO SCH (09:32)
[2018-12-03] MEDS: Calcitriol 0.25 MCG CAP PO SCH (09:32)
[2018-12-03] MEDS: Calcium Carbonate 500 MG TAB PO SCH ×3 (09:32→18:15)
[2018-12-03] MEDS: Pantoprazole 40 MG VIAL IVP SCH (09:33)
--- NOTE | 2018-12-03 09:34 | RAD ---
AP VIEW CHEST: HISTORY: Pneumonia. FINDINGS: AP view chest obtained on 12/03/2018. Comparison made to previous exam from 12/02/2018. The lungs are well aerated. No evidence of active intrathoracic disease seen. No evidence of effusion s, pneumonia or pneumothorax seen IMPRESSION: Unremarkable AP view chest. Transcribed Date/Time: 12/03/2018 9:35 AM
[2018-12-03] MEDS: Morphine 4 MG/ML VIAL SLOW IVP PRN (10:59)
--- NOTE | 2018-12-03 12:08 | PRG ---
DATE OF SERVICE: 12/03/2018 SUBJECTIVE: This morning, she is awake, alert, responsive, walked in the halls. No distress. OBJECTIVE: VITAL SIGNS: Blood pressure 145/81, temperature 98, saturations 90% on room air, respiratory rate 20, pulse 80. CHEST: No wheezing or crackles. CARDIAC: Normal S1, S2. No gallops. ABDOMEN: No masses. LABORATORY DATA: H and H is stable 10 and 29, and platelet count is normal. Chest x-ray was ordered, which shows otherwise, no acute infiltrates. IMPRESSION: 1. Status post thyroidectomy with massive hemorrhage. 2. Respiratory failure, resolved. PLAN: Disposition as per ENT. Continue ambulation, PT. Job ID: [id number]
[2018-12-03] MEDS: Acetaminophen 325 MG TAB PER TUBE PRN (22:47)
[2018-12-04 05:17] LABS: #Eosinphils 0.2 thou/uL (0.0-0.7); #Lymphocytes 2.4 thou/uL (1.20-3.40); #Monocytes 1.4 thou/uL (0.11-0.59); #Neutrophils 8.4 thou/uL (1.40-6.50); %Basophils 0.3 % (0.0-1.0); %Eosinophils 1.6 % (0.0-10.0); %Lymphocytes 19.4 % (21.0-51.0); %Monocytes 11.3 % (0.0-10.0); %Neutrophils 67.3 % (42.0-75.0); Hemoglobin 9.7 g/dL (12.0-16.0); Mean Corpuscular HGB CONC 33.8 g/dL (32.0-36.0); Mean Corpuscular Hemoglobin 31.2 pg (27.0-31.0); Mean Corpuscular Volume 92.4 fL (78.0-98.0); Platelet Count 227 thou/uL (130-400); RBC Distribution Width 12.6 % (11.5-14.5); Red Blood Cell (RBC) Count 3.12 mill/uL (4.20-5.40); White Blood Cell (WBC) Count 12.4 thou/uL (4.8-10.8)
[2018-12-04] MEDS: Levothyroxine Sodium 100 MCG TAB PO SCH (05:20)
[2018-12-04] MEDS: ceFAZolin 1 GM/D5W 1 GM in Premix Bag 1 BAG IVPB SCH (05:21)
[2018-12-04 05:36] LABS: Anion Gap 11 mmol/L (10-20); BUN (Urea Nitrogen) 8 mg/dL (9.8-20.1); Calc. Creatinine Clearance 85 mL/min (70-130); Carbon Dioxide 32 mmol/L (23-31); Chloride 100 mmol/L (98-107); Estimated GFR-MDRD Greater than 90; Glucose 186 mg/dL (83-110); Potassium 3.4 mmol/L (3.5-5.1); Sodium 140 mmol/L (136-145)
--- NOTE | 2018-12-04 07:32 | RAD ---
Chest AP view INDICATION: History of pneumonia COMPARISON: 12/03/2018 FINDINGS: Lungs:There is persistent subsegmental volume loss within the left lung base and the right mid lung. No airspace consolidation is present. Cardiac silhouette pulmonary vasculature:Moderate cardiomegaly is stable. Pulmonary vasculature appea rs within normal limits. Pleural spaces:No pleural effusion or pneumothorax is demonstrated. Upper abdomen:No abnormality seen. Osseous structures: No acute osseous abnormality. IMPRESSION: No evidence for pneumonia. Persistent areas of subsegmental volume loss within the right midlung and left lung base. Stable moderate cardiomegaly.
[2018-12-04 07:56] VITALS: BP 137/64; TEMP 97.4
[2018-12-04] MEDS: Calcium Carbonate 500 MG TAB PO SCH (09:11)
[2018-12-04] MEDS: Amlodipine 10 MG TAB PO SCH (09:11)
[2018-12-04] MEDS: Pantoprazole 40 MG VIAL IVP SCH (09:11)
[2018-12-04] MEDS: Calcitriol 0.25 MCG CAP PO SCH (09:11)
[2018-12-04] MEDS: Sodium Chloride 0.9% 1,000 ML IV SCH (09:16)
== END 2018-12-04 11:55 | disposition home or self-care (01) | DRG 907 ==
LOC: SDC 07:16 → SURG A 11:56 → CCU 14:44 → SURG B 12-02 10:24
PROVIDERS: ADMIT Otolaryngology Plastic Surgery within the Head & Neck; ATTEND Otolaryngology Plastic Surgery within the Head & Neck
PROC: 0GTK0ZZ Resection of Thyroid Gland, Open Approach (ICD-10-PCS; principal; 2018-11-29)
PROC: 0W360ZZ Control Bleeding in Neck, Open Approach (ICD-10-PCS; 2018-11-29)
PROC: 0JC50ZZ Extirpation of Matter from Left Neck Subcutaneous Tissue and Fascia, Open Approach (ICD-10-PCS; 2018-11-29)
PROC: 5A12012 Performance of Cardiac Output, Single, Manual (ICD-10-PCS; 2018-11-29)
PROC: 0CJS8ZZ Inspection of Larynx, Via Natural or Artificial Opening Endoscopic (ICD-10-PCS; 2018-11-30)
DX: E89.810 Postprocedural hemorrhage of an endocrine system organ or structure following an endocrine system procedure (principal); J96.90 Respiratory failure, unspecified, unspecified whether with hypoxia or hypercapnia; I97.121 Postprocedural cardiac arrest following other surgery; E05.00 Thyrotoxicosis with diffuse goiter without thyrotoxic crisis or storm; R63.4 Abnormal weight loss; J45.909 Unspecified asthma, uncomplicated; I10 Essential (primary) hypertension; K21.9 Gastro-esophageal reflux disease without esophagitis; E78.5 Hyperlipidemia, unspecified; G62.9 Polyneuropathy, unspecified; Z87.891 Personal history of nicotine dependence; Y83.6 Removal of other organ (partial) (total) as the cause of abnormal reaction of the patient, or of later complication, without mention of misadventure at the time of the procedure
CPT/HCPCS: 36415; 71045; 80048; 82330; 82803; 82805; 85014; 85018; 85025; 86850; 86900; 86901; 88307; 93005; 93010; 94002; 94003; 94640; C9113; J0131; J0690; J1100; J2001; J2060; J2250; J2270; J2405; J2704; J3010; J3475; J3480; J3490; J7050; J7620

== ENCOUNTER 2019-01-03 09:12 | Outpatient (CLI) | payer MEDICARE ==
--- NOTE | 2019-01-03 09:33 | RAD ---
2 views chest dated 01/03/2019. HISTORY: Dyspnea. Comparison made to previous exam from 01/03/2019. 2 views chest demonstrates cardiomegaly. Calcification of the aorta seen. The lungs are well aerated. IMPRESSION: cardiomegaly.
== END 2019-01-03 09:13 | disposition home or self-care (01) ==
LOC: RAD 09:12
PROVIDERS: ATTEND Internal Medicine Critical Care Medicine
DX: R06.00 Dyspnea, unspecified (principal); I51.7 Cardiomegaly
CPT/HCPCS: 71046

== ENCOUNTER 2019-02-16 09:02 | Outpatient (CLI) | payer MEDICARE, OTHER ==
--- NOTE | 2019-02-16 10:00 | RAD ---
EXAM: XR Barium Swallow Esophagus PROVIDED CLINICAL HISTORY: Dysphagia COMPARISON: None FINDINGS: Dual contrast esophagram reveals normal esophageal motility, distensibility and mucosal pattern. Cont rast material and 12.5 mm barium tablet traversed the gastroesophageal junction normally. Gastroesophageal reflux is demonstrated at real-time imaging. IMPRESSION: Gastroesophageal reflux.
== END 2019-02-16 09:03 | disposition home or self-care (01) ==
LOC: RAD 09:02
PROVIDERS: ATTEND Internal Medicine Gastroenterology
DX: R13.10 Dysphagia, unspecified (principal); K21.9 Gastro-esophageal reflux disease without esophagitis
CPT/HCPCS: 74220

== ENCOUNTER 2019-05-23 09:08 | Outpatient (CLI) | payer MEDICARE, OTHER ==
--- NOTE | 2019-05-25 14:32 | RAD ---
MODIFIED BARIUM SWALLOW: HISTORY: Dysphagia, unspecified. Gastroesophageal reflux disease without esophagitis. FINDINGS: This examination was performed by the speech pathologist and a videotape was performed. Varying consi stencies of barium were administered during the exam. A few episodes of premature spill of contrast i nto the vallecula and piriform sinus were noted prior to initiation of the swallowing mechanism. Ther e was a mild decrease information of the bolus into the posterior pharynx. No aspiration or penetrati on was noted during the exam. A 12.5 mm barium tablet was administered during the exam, which princess es the upper esophageal sphincter without holdup. FLUOROSCOPY: 14.8 seconds 14.66 mGy, cumulative dose IMPRESSION: No evidence of aspiration or penetration. POS: ALEAH
== END 2019-05-23 09:09 | disposition home or self-care (01) ==
PROVIDERS: ATTEND Internal Medicine Gastroenterology
DX: R13.10 Dysphagia, unspecified (principal); K21.9 Gastro-esophageal reflux disease without esophagitis
CPT/HCPCS: 74230

== ENCOUNTER 2019-07-30 16:03 | Outpatient (CLI) | payer MEDICARE, OTHER | END 2019-07-30 16:04 | disposition home or self-care (01) | LOC: CTENTCT 16:03 | PROVIDERS: ATTEND Otolaryngology Plastic Surgery within the Head & Neck | DX: J32.9 Chronic sinusitis, unspecified (principal) | CPT/HCPCS: 36415; 70486; 84439; 84443; 84481 ==

== ENCOUNTER 2019-12-12 13:32 | Outpatient (CLI) | payer MEDICARE, OTHER ==
--- NOTE | 2019-12-12 13:53 | MMO ---
Bilateral MAMMO Bilat Screen [facility]. CLINICAL HISTORY: Patient is 74 years old and is seen for screening. The patient has no family history of breast cancer. The patient has no personal history of cancer. VIEWS: The views performed were: bilateral craniocaudal with tomosynthesis and bilateral mediolateral oblique with tomosynthesis. FILMS COMPARED: The present examination has been compared to prior imaging studies performed at [facility] on 10/27/2017 and 10/30/2018, and at [facility] on 09/16/2016. This study has been interpreted with the assistance of computer-aided detection. MAMMOGRAM FINDINGS: There are scattered fibroglandular densities. Finding 1: There is a stable round mass seen in the left breast. Finding 2: There are stable benign appearing calcifications seen in both breasts. There are no suspicious masses, suspicious calcifications, or new areas of architectural distortion. IMPRESSION: THERE IS NO MAMMOGRAPHIC EVIDENCE OF MALIGNANCY. A ROUTINE FOLLOW-UP MAMMOGRAM IN 1 YEAR IS RECOMMENDED. THE RESULTS OF THIS EXAM WERE SENT TO THE PATIENT. ACR BI-RADS Category 2 - Benign finding MAMMOGRAPHY NOTE: 1. A negative mammogram report should not delay a biopsy if a dominant of clinically suspicious mass is present. 2. Approximately 10% to 15% of breast cancers are not detected by mammography. 3. Adenosis and dense breasts may obscure an underlying neoplasm. Reported by: SARAN DENIS MD Electonically Signed: [id number]
== END 2019-12-12 13:33 | disposition home or self-care (01) ==
LOC: BICMAMMO 13:32
PROVIDERS: ATTEND Obstetrics & Gynecology
DX: Z12.31 Encounter for screening mammogram for malignant neoplasm of breast (principal)
CPT/HCPCS: 77063; 77067

== ENCOUNTER 2019-12-25 10:40 | Outpatient (CLI) | payer MEDICARE, OTHER ==
--- NOTE | 2019-12-25 13:34 | RAD ---
EXAM: CHEST PA AND LATERAL TWO VIEWS: 12/25/19 HISTORY: Dyspnea. COMPARISON: 01/03/19. FINDINGS: Borderline size heart. Biapical pleural thickening. No confluent pneumonia, overt edema, or pleural e ffusion. IMPRESSION: Stable chest. No acute process. POS: RRE
== END 2019-12-25 10:41 | disposition home or self-care (01) ==
LOC: BICRAD 10:40
PROVIDERS: ATTEND Internal Medicine Critical Care Medicine
DX: R06.00 Dyspnea, unspecified (principal)
CPT/HCPCS: 71046

== ENCOUNTER 2020-10-17 12:31 | Outpatient (CLI) | payer MEDICARE | END 2020-10-17 12:32 | disposition home or self-care (01) | LOC: BICMRI 12:31 | PROVIDERS: ATTEND Anesthesiology Pain Medicine | DX: M48.062 Spinal stenosis, lumbar region with neurogenic claudication (principal); M47.816 Spondylosis without myelopathy or radiculopathy, lumbar region; M48.8X6 Other specified spondylopathies, lumbar region | CPT/HCPCS: 72148 ==

== ENCOUNTER 2020-10-28 11:07 | Outpatient (CLI) | payer MEDICARE | END 2020-10-28 11:08 | disposition home or self-care (01) | LOC: BICMAMMO 11:07 | PROVIDERS: ATTEND Family Medicine | DX: Z12.31 Encounter for screening mammogram for malignant neoplasm of breast (principal) | CPT/HCPCS: 77063; 77067 ==

== ENCOUNTER 2020-12-23 10:19 | Outpatient (CLI) | payer MEDICARE | END 2020-12-23 10:20 | disposition home or self-care (01) | LOC: BICRAD 10:19 | PROVIDERS: ATTEND Internal Medicine Critical Care Medicine | DX: R06.00 Dyspnea, unspecified (principal) | CPT/HCPCS: 71046 ==

== ENCOUNTER 2021-03-06 14:18 | Outpatient (CLI) | payer MEDICARE | END 2021-03-06 14:19 | disposition home or self-care (01) | LOC: BICMAMMO 14:18 | PROVIDERS: ATTEND Family Medicine | DX: Z13.820 Encounter for screening for osteoporosis (principal); E28.39 Other primary ovarian failure; M85.89 Other specified disorders of bone density and structure, multiple sites; Z78.0 Asymptomatic menopausal state | CPT/HCPCS: 77080 ==

== ENCOUNTER 2021-09-10 10:45 | Inpatient (IN) | payer MEDICARE, OTHER ==
[2021-09-10 10:08] VITALS: BMI 30.7
[2021-09-15] MEDS ORDERED: Fentanyl 250 MCG/5 ML VIAL ONE ×2 (08:11→09:28)
[2021-09-15] MEDS ORDERED: Midazolam HCl 2 mg/2 ml Vial ONE (08:11)
[2021-09-15] MEDS ORDERED: Vancomycin 1.5 GRAM/300 ML BAG 1.5 GM in Premix Bag 1 BAG IVPB SCH ×2 (08:15→21:00)
[2021-09-15] MEDS ORDERED: Tranexamic Acid 1,000 MG/10 ML VIAL ONE (08:47)
[2021-09-15] MEDS ORDERED: Sodium Chloride 0.9% 100 ML ONE (08:47)
[2021-09-15] MEDS ORDERED: Fentanyl 100 MCG/2 ML VIAL IV PRN (08:53)
[2021-09-15] MEDS ORDERED: Zolpidem Tartrate 5 MG TAB PO PRN ×2 (09:00→11:40)
[2021-09-15] MEDS ORDERED: Ropivacaine 0.2% 550 ML 550 ML NERVE BLCK SCH (09:00)
[2021-09-15] MEDS ORDERED: Promethazine HCl 25 MG/ML VIAL IM PRN ×3 (09:00→11:52)
[2021-09-15] MEDS ORDERED: HYDROcodone/Acetaminophen 10/325 mg Tablet PO PRN ×2 (09:00)
[2021-09-15] MEDS ORDERED: traMADol HCl 50 MG TAB PO PRN ×4 (09:00→11:40)
[2021-09-15] MEDS ORDERED: Ondansetron PF 4 MG/2 ML Vial IVP PRN ×2 (09:00→11:40)
[2021-09-15] MEDS ORDERED: EPINEPHrine 1 MG/ML AMP ONE (09:30)
[2021-09-15] MEDS ORDERED: Bupivacaine 0.25% HCL 30 ML VIAL ONE (09:30)
[2021-09-15] MEDS ORDERED: ceFAZolin Sodium (SDC) 2 GM/100 ML BAG ONE (09:39)
[2021-09-15] MEDS ORDERED: Ondansetron PF 4 MG/2 ML Vial ONE (09:50)
[2021-09-15] MEDS ORDERED: Dexamethasone 20 MG/5 ML VIAL ONE (09:50)
[2021-09-15] MEDS ORDERED: PROPOFOL 200 MG/20 ML VIAL ONE (09:50)
[2021-09-15] MEDS ORDERED: Lidocaine 1% PF 5 ML VIAL ONE (09:50)
[2021-09-15] MEDS ORDERED: Metoprolol Tartrate 5 MG/5 ML VIAL ONE (09:50)
[2021-09-15] MEDS ORDERED: Bupivacaine HCl 0.5%/Epinephrine 1:200,000/PF 30 ml Vial ONE (09:50)
[2021-09-15] MEDS ORDERED: HYDROmorphone 2 MG/ML VIAL ONE (10:19)
[2021-09-15] MEDS ORDERED: Acetaminophen 325 MG TAB PO PRN (11:40)
[2021-09-15] MEDS ORDERED: diphenhydrAMINE 25 MG CAP PO PRN (11:40)
[2021-09-15] MEDS ORDERED: Promethazine HCl 25 MG/ML VIAL IVPB PRN (11:52)
[2021-09-15] MEDS ORDERED: Ondansetron HCl/PF 4 MG/2 ML Vial IVP PRN (11:52)
[2021-09-15] MEDS ORDERED: hydrALAZINE 20 MG/ML VIAL SLOW IVP PRN (12:00)
[2021-09-15] MEDS ORDERED: Ketorolac Tromethamine 30 MG/ML VIAL ONE (12:07)
[2021-09-15] MEDS ORDERED: Labetalol HCl 100 MG/20 ML VIAL ONE (12:22)
[2021-09-15] MEDS ORDERED: Aspirin 81 mg Enteric Coated Tablet PO SCH (12:30)
[2021-09-15] MEDS ORDERED: Multivitamin W/ Minerals 1 TAB PO SCH (12:30)
[2021-09-15] MEDS ORDERED: Ferrous Gluconate 324 MG TAB PO SCH (12:30)
[2021-09-15] MEDS ORDERED: Senokot S 8.6-50 MG TAB PO SCH (12:45)
[2021-09-15] MEDS ORDERED: Albuterol Sulfate 2.5 mg/3 ml Neb NEB PRN (14:43)
[2021-09-15] MEDS: Ketorolac Tromethamine 30 MG/ML VIAL IVP SCH ×3 (15:46→23:24)
[2021-09-15] MEDS: Pregabalin 75 MG CAP PO SCH ×2 (16:25→20:30)
[2021-09-15] MEDS: Sodium Chloride 0.9% 1,000 ML IV SCH ×2 (16:25→23:24)
[2021-09-15] MEDS ORDERED: Dextrose 5% in Water 1,000 ML IV PRN (16:43)
[2021-09-15] MEDS ORDERED: HumaLOG 300 UNITS/3 ML VIAL SC PRN ×2 (16:43)
[2021-09-15] MEDS ORDERED: Dextrose 50% Abboject 50 ML SYRINGE SLOW IVP PRN (16:43)
[2021-09-15] MEDS: CEFAZOLIN 2 GM, Admixture Fee 1 EACH in Sodium Chloride 0.9% 100 ML IVPB SCH (18:36)
[2021-09-15] MEDS: Aspirin 81 mg Enteric Coated Tablet PO SCH (20:30)
[2021-09-15] MEDS: rOPINIRole HCl 0.25 MG TAB PO SCH (20:32)
[2021-09-15] MEDS: Atorvastatin Calcium 10 MG TAB PO SCH (20:32)
[2021-09-15] MEDS: Ferrous Gluconate 324 MG TAB PO SCH (20:32)
[2021-09-15] MEDS: Senokot S 8.6-50 MG TAB PO SCH (20:35)
[2021-09-16] MEDS: CEFAZOLIN 2 GM, Admixture Fee 1 EACH in Sodium Chloride 0.9% 100 ML IVPB SCH (03:05)
[2021-09-16] MEDS: Sodium Chloride 0.9% 1,000 ML IV SCH ×2 (05:24→17:41)
[2021-09-16 05:42] LABS: Hemoglobin 11.3 g/dL (12.0-16.0); Mean Corpuscular HGB CONC 32.6 g/dL (32.0-36.0); Mean Corpuscular Hemoglobin 30.4 pg (27.0-31.0); Mean Corpuscular Volume 93.3 fL (78.0-98.0); Mean Platelet Volume 8.3 fL (7.4-10.4); Platelet Count 177 thou/uL (130-400); RBC Distribution Width 12.8 % (11.5-14.5)
[2021-09-16] MEDS: Levothyroxine 150 MCG TAB PO SCH (06:29)
[2021-09-16] MEDS: Ketorolac Tromethamine 30 MG/ML VIAL IVP SCH ×3 (06:29→17:34)
[2021-09-16] MEDS: Glimepiride 1 MG TAB PO SCH ×2 (09:34→17:34)
[2021-09-16] MEDS: Aspirin 81 mg Enteric Coated Tablet PO SCH ×2 (09:34→20:32)
[2021-09-16] MEDS: Montelukast Sodium 10 mg Tablet PO SCH (09:35)
[2021-09-16] MEDS: Multivitamin W/ Minerals 1 TAB PO SCH (09:35)
[2021-09-16] MEDS: Loratadine 10 MG TAB PO SCH (09:35)
[2021-09-16] MEDS: Furosemide 40 MG TAB PO SCH (09:37)
[2021-09-16] MEDS: Empagliflozin 25 MG TAB PO SCH (09:38)
[2021-09-16] MEDS: Potassium Chloride 20 MEQ TAB PO SCH (09:38)
[2021-09-16] MEDS: Pregabalin 75 MG CAP PO SCH ×3 (09:41→20:31)
[2021-09-16] MEDS: Ferrous Gluconate 324 MG TAB PO SCH ×2 (09:41→20:32)
[2021-09-16] MEDS: Senokot S 8.6-50 MG TAB PO SCH ×2 (09:43→20:17)
[2021-09-16] MEDS: HYDROcodone/Acetaminophen 10/325 mg Tablet PO PRN ×2 (12:26→20:32)
[2021-09-16] MEDS: hydrALAZINE 20 MG/ML VIAL SLOW IVP PRN (16:46)
[2021-09-16] MEDS: Atorvastatin Calcium 10 MG TAB PO SCH (20:32)
[2021-09-16] MEDS: rOPINIRole HCl 0.25 MG TAB PO SCH (20:32)
[2021-09-17] MEDS: Ketorolac Tromethamine 30 MG/ML VIAL IVP SCH ×2 (00:20→05:49)
[2021-09-17] MEDS: Sodium Chloride 0.9% 1,000 ML IV SCH (04:13)
[2021-09-17] MEDS: Levothyroxine 150 MCG TAB PO SCH (04:39)
[2021-09-17] MEDS: hydrALAZINE 20 MG/ML VIAL SLOW IVP PRN (04:42)
[2021-09-17 05:44] LABS: Hemoglobin 11.8 g/dL (12.0-16.0); Mean Corpuscular HGB CONC 32.5 g/dL (32.0-36.0); Mean Corpuscular Hemoglobin 30.3 pg (27.0-31.0); Mean Corpuscular Volume 93.3 fL (78.0-98.0); Mean Platelet Volume 8.2 fL (7.4-10.4); Platelet Count 197 thou/uL (130-400); Red Blood Cell (RBC) Count 3.88 mill/uL (4.20-5.40); White Blood Cell (WBC) Count 14.6 thou/uL (4.8-10.8)
[2021-09-17] MEDS: Multivitamin W/ Minerals 1 TAB PO SCH (09:47)
[2021-09-17] MEDS: HYDROcodone/Acetaminophen 10/325 mg Tablet PO PRN ×2 (09:48→13:32)
[2021-09-17] MEDS: Pregabalin 75 MG CAP PO SCH (09:49)
[2021-09-17] MEDS: Furosemide 40 MG TAB PO SCH (09:51)
[2021-09-17] MEDS: Senokot S 8.6-50 MG TAB PO SCH (09:52)
[2021-09-17] MEDS: Montelukast Sodium 10 mg Tablet PO SCH (09:52)
[2021-09-17] MEDS: Ferrous Gluconate 324 MG TAB PO SCH (09:52)
[2021-09-17] MEDS: Loratadine 10 MG TAB PO SCH (09:53)
[2021-09-17] MEDS: Aspirin 81 mg Enteric Coated Tablet PO SCH (09:54)
[2021-09-17] MEDS: Glimepiride 1 MG TAB PO SCH (09:54)
[2021-09-17] MEDS: Empagliflozin 25 MG TAB PO SCH (09:55)
[2021-09-17] MEDS ORDERED: Ketorolac Tromethamine 30 MG/ML VIAL IM PRN (12:00)
[2021-09-17] MEDS: Potassium Chloride 20 MEQ TAB PO SCH (12:47)
[2021-09-17 13:19] VITALS: BP 150/75; TEMP 98.2
== END 2021-09-17 14:25 | disposition swing bed (61) | DRG 470 ==
LOC: SURG A 09-15 06:35 → SURG B 09-15 13:07
PROVIDERS: ADMIT Orthopaedic Surgery; ATTEND Orthopaedic Surgery
PROC: 0SRD0J9 Replacement of Left Knee Joint with Synthetic Substitute, Cemented, Open Approach (ICD-10-PCS; principal; 2021-09-15)
DX: M17.12 Unilateral primary osteoarthritis, left knee (principal); I10 Essential (primary) hypertension; K21.9 Gastro-esophageal reflux disease without esophagitis; J44.9 Chronic obstructive pulmonary disease, unspecified; E78.5 Hyperlipidemia, unspecified; M51.36 Other intervertebral disc degeneration, lumbar region; E78.1 Pure hyperglyceridemia; G25.81 Restless legs syndrome; E11.42 Type 2 diabetes mellitus with diabetic polyneuropathy; E78.00 Pure hypercholesterolemia, unspecified; I87.2 Venous insufficiency (chronic) (peripheral); Z90.49 Acquired absence of other specified parts of digestive tract; Z98.890 Other specified postprocedural states; Z79.899 Other long term (current) drug therapy; Z91.040 Latex allergy status; Z88.8 Allergy status to other drugs, medicaments and biological substances; Z79.890 Hormone replacement therapy; Z79.4 Long term (current) use of insulin; Z87.891 Personal history of nicotine dependence
CPT/HCPCS: 36415; 36416; 85027; A4306; C1713; C1776; J0171; J0360; J0690; J1100; J1170; J1815; J1885; J2250; J2405; J2704; J2795; J3010; J3370; J3490; J7050; S0020

== ENCOUNTER 2021-09-10 11:09 | Outpatient (CLI) | payer MEDICARE, OTHER ==
[2021-09-10 13:52] LABS: #Eosinphils 0.2 10x3/uL (0.0-0.5); #Monocytes 0.8 10x3/uL (0.0-1.1); #Neutrophils 5.3 10x3/uL (1.5-8.4); %Basophils 0.4 % (0.0-2.0); %Eosinophils 2.1 % (0.0-6.0); %Monocytes 9.7 % (0.0-10.0); %Neutrophils 64.6 % (40.0-75.0); Hemoglobin 13.2 g/dL (12.0-15.5); Mean Corpuscular HGB CONC 32.2 g/dL (32.0-36.0); Mean Corpuscular Hemoglobin 29.2 pg (27.0-33.0); Mean Corpuscular Volume 90.7 fl (81.6-98.3); Mean Platelet Volume 11.1 fl (7.4-10.4); Platelet Count 209 10x3/uL (150-450); RBC Distribution Width 13.9 % (11.5-14.5); Red Blood Cell (RBC) Count 4.52 10x6/uL (3.90-5.03); White Blood Cell (WBC) Count 8.3 10x3/uL (3.5-10.5)
[2021-09-10 13:58] LABS: Prothrombin Time 11.2 sec (9.5-12.1)
[2021-09-10 13:59] LABS: Anion Gap 13 mmol/L (10-20); BUN (Urea Nitrogen) 11 mg/dL (9.8-20.1); Calc. Creatinine Clearance 0 mL/min (70-130); Calcium 8.9 mg/dL (7.8-10.44); Carbon Dioxide 29 mmol/L (23-31); Chloride 103 mmol/L (98-107); Glucose 110 mg/dL (83-110); Potassium 3.9 mmol/L (3.5-5.1); Sodium 141 mmol/L (136-145)
[2021-09-10 20:33] LABS: SARS-CoV-2 PCR by NAA Not Detected (NotDetected)
== END 2021-09-10 11:10 | disposition home or self-care (01) ==
LOC: LABBT 11:09
PROVIDERS: ATTEND Orthopaedic Surgery
DX: Z01.818 Encounter for other preprocedural examination (principal); M17.12 Unilateral primary osteoarthritis, left knee; Z20.822 Contact with and (suspected) exposure to COVID-19
CPT/HCPCS: 80048; 85025; 85610; 87081; 93005; U0003; U0005; 93010

== ENCOUNTER 2021-11-03 14:05 | Outpatient (CLI) | payer MEDICARE, OTHER | END 2021-11-03 14:06 | disposition home or self-care (01) | LOC: BICMAMMO 14:05 | PROVIDERS: ATTEND Family Medicine | DX: Z12.31 Encounter for screening mammogram for malignant neoplasm of breast (principal) | CPT/HCPCS: 77063; 77067 ==

== ENCOUNTER 2021-12-22 10:27 | Outpatient (CLI) | payer MEDICARE | END 2021-12-22 10:28 | disposition home or self-care (01) | LOC: RAD 10:27 | PROVIDERS: ATTEND Internal Medicine Critical Care Medicine | DX: R06.00 Dyspnea, unspecified (principal) | CPT/HCPCS: 71046 ==

== ENCOUNTER → 2022-04-20 | Outpatient (CLI) | payer MEDICARE | LOC: CTENTCT 10:00 | PROVIDERS: ATTEND Otolaryngology Plastic Surgery within the Head & Neck | DX: J32.9 Chronic sinusitis, unspecified (principal) | CPT/HCPCS: 70486 ==